=== PATIENT | male | born 1955 | race Caucasian/White ===

== ENCOUNTER → 2018-01-07 13:39 | Outpatient (CLI) | payer OTHER, SELFPAY ==
--- NOTE | 2018-01-09 09:48 | PM.PFT.1 ---
Pulmonary Function Test Referral & Results Date Patient Seen: 01/07/18 Requesting provider: Lonny Mack Results: The spirometry demonstrates an FVC of 4.68 L which is 96% of predicted. The FEV1 was measured at 3.56 L which is 98% of predicted. The FEV1/FVC ratio was 76 which is 101% of predicted. Following the administration of bronchodilator there was no appreciable change in above normal numbers. Lung volumes show an SVC of 4.91 L which is 101% of predicted. The diffusing capacity was measured at 28.30 which is 84% of predicted. No hemoglobin value was provided, so no correction for potential anemia could be made, if appropriate. The maximum voluntary ventilation was normal. Interpretation: This study demonstrates probably normal pulmonary function.
== END ==
PROVIDERS: Family Provider Internal Medicine; PCP Internal Medicine; Visit Provider Internal Medicine
DX: R06.00 Dyspnea, unspecified (principal)
CPT/HCPCS: 94010; 94060; 94726; 94729

== ENCOUNTER → 2018-01-17 11:26 | Outpatient (CLI) | payer OTHER, SELFPAY ==
--- NOTE | 2018-01-17 | DI.RAD.S_ITS ---
PROCEDURE: XR CHEST 2V INDICATIONS: DYSPNEA TECHNIQUE: 2 views of the chest were acquired. COMPARISON: None. FINDINGS: Surgical changes and devices: None. Lungs and pleura: No pleural effusions or pneumothorax. Lungs are clear. Mediastinum: Mediastinal contours are normal. Heart size is normal. Bones and chest wall: No suspicious bony abnormalities. Soft tissues appear unremarkable. IMPRESSION: Normal for age, source of current symptoms is not seen. Dictated by: eHrmilo Gore M.D. on 01/17/2018 at 12:16 Approved by: Hermilo Gore M.D. on 01/17/2018 at 12:16
== END ==
LOC: LAB 11:27 → RAD 11:29
PROVIDERS: Family Provider Internal Medicine; PCP Internal Medicine; Visit Provider Internal Medicine
DX: R06.00 Dyspnea, unspecified (principal)
CPT/HCPCS: 71046

== ENCOUNTER → 2019-01-31 08:59 | Outpatient (CLI) | payer OTHER, SELFPAY ==
[2019-01-31 10:06] LABS: Aspartate Aminotransferase 40 IU/L (17-59); Cholesterol 125 mg/dL (140-199); HDL Cholesterol 35 mg/dL (40-60); LDL Cholesterol Calculated 80 mg/dL (<100); Triglycerides 49 mg/dL (35-150)
== END ==
PROVIDERS: PCP Internal Medicine; Visit Provider Internal Medicine
DX: E78.2 Mixed hyperlipidemia (principal)
CPT/HCPCS: 36415; 80061; 84450

== ENCOUNTER → 2019-09-16 20:34 | Outpatient (ROUT) | payer MEDICARE, OTHER, SELFPAY ==
[2019-09-16 21:03] LABS: HEMOLYSIS 26 (0-50)
[2019-09-16 21:10] LABS: Aspartate Aminotransferase 45 IU/L (17-59); Blood Urea Nitrogen 22 mg/dL (9-20); Calcium 9.8 mg/dL (8.4-10.2); Carbon Dioxide 29 mmol/L (22-32); Chloride 104 mmol/L (98-107); Cholesterol 133 mg/dL (140-199); Estimated Glomerular Filt Rate > 60.0 mL/min (>60); Glucose 84 mg/dL (80-110); HDL Cholesterol 38 mg/dL (40-60); LDL Cholesterol Calculated 82 mg/dL (<100); Potassium 4.2 mmol/L (3.4-5.1); Sodium 142 mmol/L (137-145); Triglycerides 65 mg/dL (35-150)
[2019-09-16 22:42] LABS: Prostate Specific Antigen 4.06 ng/mL (0.10-4.00)
== END ==
PROVIDERS: PCP Internal Medicine; Visit Provider Internal Medicine
DX: N40.0 Benign prostatic hyperplasia without lower urinary tract symptoms (principal); I10 Essential (primary) hypertension; E78.2 Mixed hyperlipidemia
CPT/HCPCS: 80048; 80061; 84153; 84450

== ENCOUNTER 2019-12-27 17:09 | Emergency (ER) | payer MEDICARE, OTHER, SELFPAY ==
[2019-12-27 17:13] VITALS: BP 145/74; PULSE 92; RESP 20; TEMP 36.7; O2SAT 99
[2019-12-27 18:07] LABS: Alanine Aminotransferase 33 IU/L (<50); Albumin 4.6 g/dL (3.5-5.0); Albumin Globulin Ratio 1.2 (1.0-2.8); Alkaline Phosphatase 73 U/L (38-126); Amylase 86 U/L (30-110); Aspartate Aminotransferase 39 IU/L (17-59); BUN Creatinine Ratio 17.4 (6-22); Bilirubin Total 1.4 mg/dL (0.2-1.3); Blood Urea Nitrogen 21 mg/dL (9-20); Calcium 9.2 mg/dL (8.4-10.2); Carbon Dioxide 25 mmol/L (22-32); Chloride 102 mmol/L (98-107); Estimated Glomerular Filt Rate > 60.0 mL/min (>60); Globulin 3.9 g/dL (1.7-4.1); Glucose 99 mg/dL (80-110); Lipase 211 U/L (23-300); Potassium 4.3 mmol/L (3.4-5.1); Sodium 137 mmol/L (137-145); Total Protein 8.5 g/dL (6.3-8.2)
[2019-12-27 18:08] LABS: Add Manual Diff / Slide Review NO; Basophils Absolute Auto 100 /uL (0-100); Basophils Percent Auto 0.5 % (0-2); Eosinophils Absolute Auto 100 /uL (0-450); Eosinophils Percent Auto 0.3 % (2-4); HEMOLYSIS 65 (0-50); Hematocrit 43.8 % (41-53); Hemoglobin 15.4 g/dL (13.5-17.5); Lymphocytes Absolute Auto 1300 /uL (1100-4500); Lymphocytes Percent Auto 8.2 % (25-40); Mean Corpuscular HGB Conc 35.3 % (30-36); Mean Corpuscular Hemoglobin 30.9 PG (26-34); Mean Corpuscular Volume 87.6 fL (80-100); Monocytes Absolute Auto 1200 /uL (0-900); Monocytes Percent Auto 7.8 % (3-14); Neutrophils Absolute Auto 12900 /uL (1500-7000); Neutrophils Percent Auto 83.2 % (50-75); Platelet Count 311 X10^3/uL (150-400); Red Cell Distribution Width 13.2 % (11.6-14.8); White Blood Cell Count 15.6 X10^3/uL (4.5-11.0)
[2019-12-27] MEDS: SODIUM CHLORIDE 0.9% 1,000 ML 150 ML IV (18:31)
[2019-12-27 19:12] VITALS: BP 142/85; PULSE 81; RESP 15; O2SAT 99
--- NOTE | 2019-12-27 19:20 | DI.CT.S_ITS ---
PROCEDURE: CT ABDOMEN PELVIS W CON INDICATIONS: abd pain TECHNIQUE: After the administration of intravenous contrast, 5 mm thick sections acquired from the diaphragm to the symphysis. 5 mm coronal and sagittal reformats were acquired. For radiation dose reduction, the following was used: automated exposure control, adjustment of mA and/or kV according to patient size. COMPARISON: [facility], CT, ABDOMEN W&WO CONTRAST, 03/03/2013, 10:51. [facility], MR, ABDOMEN W&WO CONTRAST, 03/20/2013, 7:19. FINDINGS: Image quality: Excellent. ABDOMEN: Lung bases: Lung bases are clear. Heart size is normal. Solid organs: Liver is normal in size and enhancement with 0.3 cm probable hemangioma in segment of the liver it is chronic. Miniscule scattered hypodensities. No findings to suggest abscess. Gallbladder is normal. Biliary system is non dilated. Pancreas enhances normally. Spleen is normal in size and enhancement. No adrenal nodules. Kidneys demonstrate normal size and enhancement, without hydronephrosis. Peritoneum and bowel: There is wall thickening and significant pericolonic inflammation around the proximal sigmoid colon where a few diverticula are present. No extraluminal gas. There is adjacent fascial thickening, but no associated fluid collection. The appendix is not identified. Small bowel loops are decompressed. There is trace free fluid in the pelvis. Nodes and vessels: No retroperitoneal or mesenteric adenopathy by size criteria. Aorta and inferior vena cava are normal in size. Moderate calcific atherosclerosis of the abdominal aorta. Miscellaneous: No ventral hernias. PELVIS: Genitourinary: The urinary bladder wall is moderately thickened and there is moderate perivesicular inflammation along the cranial aspect, reactive to adjacent inflammatory process. No air within the urinary bladder.. The prostate gland is markedly enlarged. Miscellaneous: No inguinal hernias or adenopathy. Bones: No suspicious bony lesions. Lower lumbar facet joint degeneration. No vertebral body compression fractures. IMPRESSION: 1. Acute moderate sigmoid diverticulitis without perforation or abscess formation. 2. Reactive cystitis. 3. Small liver hemangioma. No liver abscess. 4. Marked prostatomegaly. Dictated by: Nicole Goodman M.D. on 12/27/2019 at 21:29 Approved by: Nicole Goodman M.D. on 12/27/2019 at 21:36
[2019-12-27] MEDS: MORPHINE 2 MG/ML INJ IV (20:08)
--- NOTE | 2019-12-27 20:30 | ED_ITS ---
HPI - Abdominal Pain <DANIELITO Dean - Last Filed: 12/27/19 22:31> General Chief Complaint: Abdominal Pain Stated Complaint: acute pain in lower abd Time Seen by Provider: 12/27/19 17:38 Source: patient and family Mode of arrival: Ambulatory Limitations: no limitations History of Present Illness HPI narrative: The patient is a 64-year-old male nonsmoker with history of IBS who presents with a chief complaint of lower abdominal pain. It is in the center of his lower abdomen, radiating to his right left side, started yesterday morning. He states he tried to vomit help himself feel better but was unable to do so. He denies any current nausea vomiting or diarrhea. He denies any dysuria urgency or frequency. He states he does have a history of BPH, sometimes it is difficult to urinate. He does have a history of IBS, states his last bowel movement was this afternoon and was normal. He denies any fevers. Related Data Previous Rx's Medication Instructions Recorded ciprofloxacin HCl 500 mg PO BID 10 Days #20 tab 12/27/19 hydrocodone-acetaminophen [[place]] 1 tab PO Q4-6H PRN #10 tab 12/27/19 metronidazole 500 mg PO TID 10 Days #30 tab 12/27/19 ondansetron 4 mg PO Q6H PRN #20 tab 12/27/19 Review of Systems <DANIELITO Dean - Last Filed: 12/27/19 22:31> Review of Systems Narrative: GENERAL: Denies chills, fatigue, malaise, fever, sweats. HEENT: Denies sinus pain, ear pain, sore throat, difficulty swallowing, dizziness. RESPIRATORY: Denies dyspnea, cough, wheezing, hemoptysis, sputum. CARDIOVASCULAR: Denies chest pain, palpitations, orthopnea, edema, GASTROINTESTINAL: See HPI : Denies dysuria, frequency, incontinence, hematuria, urinary retention. MUSCULOSKELETAL: denies weakness, joint pain, or bony pain SKIN: Denies rash, skin lesions, or other NEUROLOGIC: Denies weakness, headache, numbness, change in speech, confusion, seizures, incoordination. PSYCHIATRIC: No concerning psychosocial issues. 12 point review of systems is negative except for those stated above Exam <DANIELITO Dean - Last Filed: 12/27/19 22:31> Narrative Exam Narrative: GENERAL: This is a well-nourished, well-developed patient, in no acute distress HEAD: Atraumatic. Normocephalic. No temporal or scalp tenderness. EYES: Pupils equal round and reactive. Extraocular motions intact. No scleral icterus. No injection or drainage. ENT: Nose without bleeding, purulent drainage or septal hematoma. Throat without erythema, tonsillar hypertrophy or exudate. Uvula midline. Airway patent. NECK: Trachea midline. No JVD or lymphadenopathy. Supple, nontender, no meningeal signs. CARDIOVASCULAR: Regular rate and rhythm without murmurs, gallops, or rubs. RESPIRATORY: Clear to auscultation. Breath sounds equal bilaterally. No wheezes, rales, or rhonchi. No cough. No increased respiratory effort accessory muscle use. GASTROINTESTINAL: Abdomen soft, nondistended. No hepato-splenomegaly, or palpable masses. No guarding. Diffuse tenderness to lower abdominal palpation. EXTREMITIES: No clubbing, cyanosis, or edema. No joint tenderness, effusion, or edema noted. BACK: Nontender without deformity or crepitance. No flank tenderness. NEURO: AOx3. SKIN: No rash or erythema on visible skin Initial Vital Signs Initial Vital Signs: Vital Signs Temperature 98.0 F 12/27/19 17:13 Pulse Rate 92 H 12/27/19 17:13 Respiratory Rate 12/27/19 17:13 Blood Pressure 145/74 H 12/27/19 17:13 Pulse Oximetry 99 12/27/19 17:13 <Lul Ballard DO - Last Filed: 12/27/19 23:56> Initial Vital Signs Initial Vital Signs: Vital Signs Temperature 98.0 F 12/27/19 17:13 Pulse Rate 92 H 12/27/19 17:13 Respiratory Rate 12/27/19 17:13 Blood Pressure 145/74 H 12/27/19 17:13 Pulse Oximetry 99 12/27/19 17:13 Course <MICK Dean - Last Filed: 12/27/19 22:31> Orders Ordered: ED Orders 12/27/19 17:45 Amylase Stat Complete Blood Count AUTO DIFF Stat Comprehensive Metabolic Panel Stat Lipase Stat 12/27/19 19:20 CT abdomen pelvis w con Stat Discontinued Medications Hydrocodone Bitart/Acetaminophen (Vicodin 5/325 Prepack) 1 bottle MISC SEEINSTR ONE Stop: 12/27/19 21:51 Last Admin: 12/27/19 22:00 Dose: 1 bottle Documented by: GUERRERO Ciprofloxacin (Cipro) 500 mg PO NOW ONE Stop: 12/27/19 21:51 Last Admin: 12/27/19 22:00 Dose: 500 mg Documented by: GUERRERO Sodium Chloride (Normal Saline 0.9%) 1,000 mls @ 150 mls/hr IV CONT ANTHONY Last Admin: 12/27/19 18:31 Dose: 150 mls/hr Documented by: GUERRERO Metronidazole (Metronidazole) 500 mg PO NOW ONE Stop: 12/27/19 21:51 Last Admin: 12/27/19 22:00 Dose: 500 mg Documented by: GUERRERO Morphine Sulfate (Morphine) 2 mg IV NOW ONE Stop: 12/27/19 20:02 Last Admin: 12/27/19 20:08 Dose: 2 mg Documented by: SANDRA Ondansetron HCl (Zofran Odt Prepack) 1 bottle MISC SEEINSTR ONE Stop: 12/27/19 21:51 Last Admin: 12/27/19 22:00 Dose: 1 bottle Documented by: GUERRERO Vital Signs Vital signs: Vital Signs - 8 hr 12/27/19 17:13 12/27/19 19:12 12/27/19 20:34 Temperature 98.0 F Pulse Rate 92 H 81 79 Respiratory Rate 20 15 Blood Pressure 145/74 H Blood Pressure [Right Arm] 142/85 H 157/77 H Pulse Oximetry 99 99 97 12/27/19 21:09 12/27/19 22:00 Temperature Pulse Rate 79 Respiratory Rate 19 Blood Pressure Blood Pressure [Right Arm] 150/82 H 140/84 Pulse Oximetry 97 <Lul Ballard DO - Last Filed: 12/27/19 23:56> Orders Ordered: ED Orders 12/27/19 17:45 Amylase Stat Complete Blood Count AUTO DIFF Stat Comprehensive Metabolic Panel Stat Lipase Stat 12/27/19 19:20 CT abdomen pelvis w con Stat Discontinued Medications Hydrocodone Bitart/Acetaminophen (Vicodin 5/325 Prepack) 1 bottle MISC SEEINSTR ONE Stop: 12/27/19 21:51 Last Admin: 12/27/19 22:00 Dose: 1 bottle Documented by: GUERRERO Ciprofloxacin (Cipro) 500 mg PO NOW ONE Stop: 12/27/19 21:51 Last Admin: 12/27/19 22:00 Dose: 500 mg Documented by: GUERRERO Sodium Chloride (Normal Saline 0.9%) 1,000 mls @ 150 mls/hr IV CONT ANTHONY Last Admin: 12/27/19 18:31 Dose: 150 mls/hr Documented by: GUERRERO Metronidazole (Metronidazole) 500 mg PO NOW ONE Stop: 12/27/19 21:51 Last Admin: 12/27/19 22:00 Dose: 500 mg Documented by: GUERRERO Morphine Sulfate (Morphine) 2 mg IV NOW ONE Stop: 12/27/19 20:02 Last Admin: 12/27/19 20:08 Dose: 2 mg Documented by: SANDRA Ondansetron HCl (Zofran Odt Prepack) 1 bottle MISC SEEINSTR ONE Stop: 12/27/19 21:51 Last Admin: 12/27/19 22:00 Dose: 1 bottle Documented by: GUERRERO Vital Signs Vital signs: Vital Signs - 8 hr 12/27/19 17:13 12/27/19 19:12 12/27/19 20:34 Temperature 98.0 F Pulse Rate 92 H 81 79 Respiratory Rate 20 15 Blood Pressure 145/74 H Blood Pressure [Right Arm] 142/85 H 157/77 H Pulse Oximetry 99 99 97 12/27/19 21:09 12/27/19 22:00 Temperature Pulse Rate 79 Respiratory Rate 19 Blood Pressure Blood Pressure [Right Arm] 150/82 H 140/84 Pulse Oximetry 97 MDM - Abdominal Pain <MICK Dean - Last Filed: 12/27/19 22:31> Differential Diagnosis Differential diagnosis: Likely abdominal pain, acute appendicitis, constipation and diverticulitis Lab Data Result diagrams: 12/27/19 17:45 12/27/19 17:45 Labs: Lab Results 12/27/19 12/27/19 Range/Units 17:45 17:45 WBC 15.6 H (4.5-11.0) X10^3/uL RBC 5.00 (4.5-5.9) X10^6/uL Hgb 15.4 (13.5-17.5) g/dL Hct 43.8 (41-53) % MCV 87.6 (80-100) fL MCH 30.9 (26-34) PG MCHC 35.3 (30-36) % RDW 13.2 (11.6-14.8) % Plt Count 311 (150-400) X10^3/uL Neut % (Auto) 83.2 H (50-75) % Lymph % (Auto) 8.2 L (25-40) % [place] % (Auto) 7.8 (3-14) % Eos % (Auto) 0.3 L (2-4) % Baso % (Auto) 0.5 (0-2) % Neut # (Auto) 10681 H (2400-9406) /uL Lymph # (Auto) 1300 (5418-6341) /uL [place] # (Auto) 1200 H (0-900) /uL Eos # (Auto) 100 (0-450) /uL Baso # (Auto) 100 (0-100) /uL Sodium 137 (137-145) mmol/L Potassium 4.3 (3.4-5.1) mmol/L Chloride 102 (98-107) mmol/L Carbon Dioxide 25 (22-32) mmol/L BUN 21 H (9-20) mg/dL Creatinine 1.21 (0.66-1.25) mg/dL Estimated GFR > 60.0 (>60) mL/min BUN/Creatinine Ratio 17.4 (6-22) Glucose 99 (80-110) mg/dL Calcium 9.2 (8.4-10.2) mg/dL Total Bilirubin 1.4 H (0.2-1.3) mg/dL AST 39 (17-59) IU/L ALT 33 (<50) IU/L Alkaline Phosphatase 73 (38-126) U/L Total Protein 8.5 H (6.3-8.2) g/dL Albumin 4.6 (3.5-5.0) g/dL Globulin 3.9 (1.7-4.1) g/dL Albumin/Globulin Ratio 1.2 (1.0-2.8) Amylase 86 (30-110) U/L Lipase 211 (23-300) U/L Point of care testing: Urine Dip Bedside Urine Glucose Negative Bedside Urine Bilirubin - Negative Bedside Urine Ketone + 15 Urine Specific [place] 1.030 Bedside Urine Occult Blood - Negative Bedside Urine pH 5.5 Bedside Urine Protein +/- 15 Bedside Urine Urobilinogen - Negative Bedside Urine Nitrite - Negative Bedside Urine Leukocytes - Negative Esterase Imaging Data CT scan - abdomen/pelvis: Radiologist's Impression: [address] [address] [address] Scan Report Signed Patient: John FigueroaMR#: [id number] : 5Acct:[id number] Age/Sex: 64 / MDate of Service: 12/27/19 Loc: ED Accession Number: [id number] Procedure: CT abdomen pelvis w con Ordering Provider: Jadyn Shea-BC PROCEDURE: CT ABDOMEN PELVIS W CON INDICATIONS: abd pain TECHNIQUE: After the administration of intravenous contrast, 5 mm thick sections acquired from the diaphragm to the symphysis. 5 mm coronal and sagittal reformats were acquired. For radiation dose reduction, the following was used: automated exposure control, adjustment of mA and/or kV according to patient size. COMPARISON: [facility], CT, ABDOMEN W&WO CONTRAST, 03/03/2013, 10:51. [facility], MR, ABDOMEN W&WO CONTRAST, 03/20/2013, 7:19. FINDINGS: Image quality: Excellent. ABDOMEN: Lung bases: Lung bases are clear. Heart size is normal. Solid organs: Liver is normal in size and enhancement with 0.3 cm probable hemangioma in segment of the liver it is chronic. Miniscule scattered hypodensities. No findings to suggest abscess. Gallbladder is normal. Biliary system is non dilated. Pancreas enhances normally. Spleen is normal in size and enhancement. No adrenal nodules. Kidneys demonstrate normal size and enhancement, without hydronephrosis. Peritoneum and bowel: There is wall thickening and significant pericolonic inflammation around the proximal sigmoid colon where a few diverticula are present. No extraluminal gas. There is adjacent fascial thickening, but no associated fluid collection. The appendix is not identified. Small bowel loops are decompressed. There is trace free fluid in the pelvis. Nodes and vessels: No retroperitoneal or mesenteric adenopathy by size criteria. Aorta and inferior vena cava are normal in size. Moderate calcific atherosclerosis of the abdominal aorta. Miscellaneous: No ventral hernias. PELVIS: Genitourinary: The urinary bladder wall is moderately thickened and there is moderate perivesicular inflammation along the cranial aspect, reactive to adjacent inflammatory process. No air within the urinary bladder.. The prostate gland is markedly enlarged. Miscellaneous: No inguinal hernias or adenopathy. Bones: No suspicious bony lesions. Lower lumbar facet joint degeneration. No vertebral body compression fractures. IMPRESSION: 1. Acute moderate sigmoid diverticulitis without perforation or abscess formation. 2. Reactive cystitis. 3. Small liver hemangioma. No liver abscess. 4. Marked prostatomegaly. Dictated by: Nicole Goodman M.D. on 12/27/2019 at 21:29 Approved by: Nicole Goodman M.D. on 12/27/2019 at 21:36 [facility] Narrative Medical decision making narrative: The patient is a 64-year-old male who present s with a chief complaint of lower abdominal pain. He has leukocytosis and guarding on exam, so CT was obtained. This shows diverticulitis. Patient was given 1st p.o. doses of Flagyl and Cipro. Also given [place] and Zofran. I discussed at length following up with primary care provider, coming back to the emergency department for any acute concerns. I discussed dietary changes as well. The patient overall appears well and nontoxic throughout his stay in the emergency department. Patient have no questions or concerns upon discharge and state understanding return precautions as well as follow-up care. <Lul Ballard, DO - Last Filed: 12/27/19 23:56> Lab Data Labs: Lab Results 12/27/19 12/27/19 Range/Units 17:45 17:45 WBC 15.6 H (4.5-11.0) X10^3/uL RBC 5.00 (4.5-5.9) X10^6/uL Hgb 15.4 (13.5-17.5) g/dL Hct 43.8 (41-53) % MCV 87.6 (80-100) fL MCH 30.9 (26-34) PG MCHC 35.3 (30-36) % RDW 13.2 (11.6-14.8) % Plt Count 311 (150-400) X10^3/uL Neut % (Auto) 83.2 H (50-75) % Lymph % (Auto) 8.2 L (25-40) % [place] % (Auto) 7.8 (3-14) % Eos % (Auto) 0.3 L (2-4) % Baso % (Auto) 0.5 (0-2) % Neut # (Auto) 49503 H (7470-0181) /uL Lymph # (Auto) 1300 (3560-7679) /uL [place] # (Auto) 1200 H (0-900) /uL Eos # (Auto) 100 (0-450) /uL Baso # (Auto) 100 (0-100) /uL Sodium 137 (137-145) mmol/L Potassium 4.3 (3.4-5.1) mmol/L Chloride 102 (98-107) mmol/L Carbon Dioxide 25 (22-32) mmol/L BUN 21 H (9-20) mg/dL Creatinine 1.21 (0.66-1.25) mg/dL Estimated GFR > 60.0 (>60) mL/min BUN/Creatinine Ratio 17.4 (6-22) Glucose 99 (80-110) mg/dL Calcium 9.2 (8.4-10.2) mg/dL Total Bilirubin 1.4 H (0.2-1.3) mg/dL AST 39 (17-59) IU/L ALT 33 (<50) IU/L Alkaline Phosphatase 73 (38-126) U/L Total Protein 8.5 H (6.3-8.2) g/dL Albumin 4.6 (3.5-5.0) g/dL Globulin 3.9 (1.7-4.1) g/dL Albumin/Globulin Ratio 1.2 (1.0-2.8) Amylase 86 (30-110) U/L Lipase 211 (23-300) U/L Point of care testing: Urine Dip Bedside Urine Glucose Negative Bedside Urine Bilirubin - Negative Bedside Urine Ketone + 15 Urine Specific [place] 1.030 Bedside Urine Occult Blood - Negative Bedside Urine pH 5.5 Bedside Urine Protein +/- 15 Bedside Urine Urobilinogen - Negative Bedside Urine Nitrite - Negative Bedside Urine Leukocytes - Negative Esterase Discharge Plan Departure Patient Disposition: Home Clinical Impression: Diverticulitis Discharge Date/Time: 12/27/19 22:19 Instructions: DI for Diverticulitis Activity Restrictions/Additional Instructions: Thank you for trusting us with your care today Today we found that you have diverticulitis. This is an infection in your sigmoid colon. I sent for prescriptions to [facility]. This includes 2 different antibiotics as well as pain medication and nausea medication. Please follow-up with primary care provider in the next few days. As discussed, please come back to emergency department for any acute concerns such as inability keep down fluids etcetera I have given you a prescription of a narcotic for pain. Be aware that this can be constipating and sedating. I encouraged taking with a stool softener, pushing fluids and fiber. Do not take and drive, operate heavy machinery, etc. Do not combine it with any other sedating substances such as alcohol. The combination of narcotics and alcohol and/or other sedatives can be lethal. Prescriptions: New ondansetron 4 mg tablet,disintegrating 4 mg PO Q6H PRN (Reason: nausea and vomiting) Qty: 20 RF: 0 hydrocodone-acetaminophen [[place]] 5-325 mg tablet 1 tab PO Q4-6H PRN (Reason: pain) Qty: 10 RF: 0 metronidazole 500 mg tablet 500 mg PO TID 10 Days Qty: 30 RF: 0 ciprofloxacin HCl 500 mg tablet 500 mg PO BID 10 Days Qty: 20 RF: 0 Referrals: Lonny Mack MD [Primary Care Provider] - <Lul Ballard DO - Last Filed: 12/27/19 23:56> Cosign ED Attending Cosignature Attestation: Dr Ballard Co-Sign Statement: I was available for consultation during this patient's emergency department visit. This chart is signed by myself for administrative purposes only. I did not have direct contact with this patient during this visit. They were seen independent ly by the [facility].
[2019-12-27 20:34] VITALS: BP 157/77; PULSE 79; O2SAT 97
[2019-12-27 21:09] VITALS: BP 150/82; PULSE 79; RESP 19; O2SAT 97
[2019-12-27 22:00] VITALS: BP 140/84
[2019-12-27] MEDS: CIPROFLOXACIN 500 MG TABLET PO (22:00)
[2019-12-27] MEDS: ONDANSETRON 4 MG ODT PREPACK 1 BOTTLE MISC (22:00)
[2019-12-27] MEDS: HYDROCODONE/ACET 5/325 PREPACK 1 BOTTLE MISC (22:00)
[2019-12-27] MEDS: metroNIDAZOLE 250 MG TABLET 500 MG PO (22:00)
== END 2019-12-27 22:19 | disposition home or self-care (01) ==
PROVIDERS: Emergency Medicine; Emergency Provider Nurse Practitioner Family; PCP Internal Medicine
DX: K57.92 Diverticulitis of intestine, part unspecified, without perforation or abscess without bleeding (principal)
CPT/HCPCS: 36415; 74177; 80053; 81003; 82150; 83690; 85025; 96374; 99284; J2270; Q9967

== ENCOUNTER → 2020-10-26 14:43 | Outpatient (ROUT) | payer MEDICARE, OTHER, SELFPAY ==
[2020-10-26 15:26] LABS: Aspartate Aminotransferase 36 IU/L (17-59); Blood Urea Nitrogen 19 mg/dL (9-20); Calcium 9.5 mg/dL (8.4-10.2); Carbon Dioxide 29 mmol/L (22-32); Chloride 104 mmol/L (98-107); Cholesterol 129 mg/dL (140-199); Estimated Glomerular Filt Rate > 60.0 mL/min (>60); Glucose 95 mg/dL (80-110); HDL Cholesterol 40 mg/dL (40-60); HEMOLYSIS < 15 (0-50); LDL Cholesterol Calculated 71 mg/dL (<100); Potassium 4.1 mmol/L (3.4-5.1); Sodium 140 mmol/L (137-145); Triglycerides 89 mg/dL (35-150)
== END ==
PROVIDERS: PCP Internal Medicine; Visit Provider Internal Medicine
DX: I10 Essential (primary) hypertension (principal); E78.2 Mixed hyperlipidemia
CPT/HCPCS: 80048; 80061; 84450

== ENCOUNTER → 2023-06-19 14:53 | Outpatient (CLI) | payer MEDICARE, OTHER, SELFPAY ==
[2023-06-19 15:50] LABS: Hematocrit 41.1 % (41-53); Hemoglobin 14.2 g/dL (13.5-17.5); Mean Corpuscular HGB Conc 34.5 % (30-36); Mean Corpuscular Hemoglobin 29.7 PG (26-34); Mean Corpuscular Volume 86.1 fL (80-100); Platelet Count 310 X10^3/uL (150-400); Red Blood Cell Count 4.77 X10^6/uL (4.5-5.9); Red Cell Distribution Width 13.8 % (11.6-14.8)
[2023-06-19 16:06] LABS: Alanine Aminotransferase 30 IU/L (<50); Albumin 4.4 g/dL (3.5-5.0); Albumin Globulin Ratio 1.4 (1.0-2.8); Alkaline Phosphatase 66 U/L (38-126); Aspartate Aminotransferase 30 IU/L (17-59); BUN Creatinine Ratio 21.8 (6-22); Bilirubin Total 0.7 mg/dL (0.2-1.3); Blood Urea Nitrogen 27 mg/dL (9-20); Calcium 9.8 mg/dL (8.4-10.2); Carbon Dioxide 26 mmol/L (22-32); Chloride 103 mmol/L (98-107); Cholesterol 137 mg/dL (140-199); Estimated Glomerular Filt Rate > 60 mL/min (>60); Globulin 3.2 g/dL (1.7-4.1); Glucose 96 mg/dL (80-110); HDL Cholesterol 41 mg/dL (40-60); HEMOLYSIS < 15 (0-50); LDL Cholesterol Calculated 75 mg/dL (<100); Potassium 4.2 mmol/L (3.4-5.1); Sodium 140 mmol/L (137-145); Total Protein 7.6 g/dL (6.3-8.2); Triglycerides 104 mg/dL (35-150)
[2023-06-19 16:35] LABS: Prostate Specific Antigen 5.97 ng/mL (0.10-4.00); TSH w/ Reflex to FT4 3.32 uIU/mL (0.47-4.68)
== END ==
PROVIDERS: PCP Internal Medicine; Referring Provider Internal Medicine; Visit Provider Internal Medicine
DX: N40.1 Benign prostatic hyperplasia with lower urinary tract symptoms (principal); N13.8 Other obstructive and reflux uropathy; E78.2 Mixed hyperlipidemia; I10 Essential (primary) hypertension
CPT/HCPCS: 36415; 80053; 80061; 84153; 84443; 85027

== ENCOUNTER → 2024-03-20 11:49 | Outpatient (CLI) | payer MEDICARE, OTHER, SELFPAY ==
--- NOTE | 2024-03-20 11:51 | DI.RAD.S_ITS ---
PROCEDURE: XR LUMBAR SPINE 2-3V INDICATIONS: Lower Back Pain TECHNIQUE: 3 views of the lumbar spine were acquired. COMPARISON: Located Within [facility], CT, CT ABDOMEN PELVIS W CON, 12/27/2019, 20:19. FINDINGS: Bones: 5 [id number] vertebrae are present. Anterolisthesis of L4 on L5 measuring 0.6 cm. No vertebral body compression fractures. No suspicious bony lesions. Soft tissues: Overlying bowel gas pattern is normal. No suspicious soft tissue calcifications. Arterial vascular calcifications. IMPRESSION: Grade 1 anterolisthesis of L4 on L5. Dictated by: Christopher Rubalcava M.D. on 03/20/2024 at 15:45 Approved by: Christopher Rubalcava M.D. on 03/20/2024 at 15:47
== END ==
PROVIDERS: PCP Internal Medicine; Referring Provider Nurse Practitioner Family; Visit Provider Nurse Practitioner Family
DX: M43.16 Spondylolisthesis, lumbar region (principal); M54.50 Low back pain, unspecified
CPT/HCPCS: 72100

== ENCOUNTER → 2024-07-13 10:49 | Outpatient (CLI) | payer MEDICARE, OTHER, SELFPAY ==
[2024-07-13 13:24] LABS: Aspartate Aminotransferase 34 IU/L (17-59); BUN Creatinine Ratio 20.8 (6-22); Blood Urea Nitrogen 26 mg/dL (9-20); Calcium 9.5 mg/dL (8.4-10.2); Carbon Dioxide 27 mmol/L (22-32); Chloride 104 mmol/L (98-107); Cholesterol 266 mg/dL (140-199); Estimated Glomerular Filt Rate > 60 mL/min (>60); Glucose 89 mg/dL (80-110); HDL Cholesterol 42 mg/dL (40-60); HEMOLYSIS < 15 (0-50); LDL Cholesterol Calculated 196 mg/dL (<100); Potassium 4.2 mmol/L (3.4-5.1); Sodium 139 mmol/L (137-145); Triglycerides 139 mg/dL (35-150)
[2024-07-13 13:49] LABS: Prostate Specific Antigen 6.06 ng/mL (0.10-4.00)
[2024-07-13 14:25] LABS: Microalbumin Urine Random 1.4 mg/dL (0-1.6)
== END ==
PROVIDERS: PCP Internal Medicine; Referring Provider Internal Medicine; Visit Provider Internal Medicine
DX: I10 Essential (primary) hypertension (principal); N40.1 Benign prostatic hyperplasia with lower urinary tract symptoms; N13.8 Other obstructive and reflux uropathy; E78.2 Mixed hyperlipidemia
CPT/HCPCS: 36415; 80048; 80061; 82043; 82570; 84153; 84450